=== PATIENT | female | born 1995 | race Caucasian/White ===

== ENCOUNTER → 2020-10-24 01:17 | Outpatient (CLI) | payer OTHER, SELFPAY ==
[2020-10-25 21:48] LABS: SARS-CoV-2 RNA PCR Positive
== END ==
PROVIDERS: PCP Nurse Practitioner Adult Health; Visit Provider Nurse Practitioner Adult Health
DX: R09.81 Nasal congestion (principal); Z20.822 Contact with and (suspected) exposure to COVID-19
CPT/HCPCS: C9803; U0003; U0005